=== PATIENT | male | born 1990 | race Caucasian/White ===

== ENCOUNTER 2024-06-15 17:41 | Emergency (ER) | payer OTHER, SELFPAY ==
[2024-06-15 17:51] VITALS: BP 159/93
--- NOTE | 2024-06-15 19:03 | ED.GENMED ---
History of Present Illness
General
Chief Complaint: Musculo-Skeletal Complaint
Time Seen by Provider: 06/15/24 18:13
History of Present Illness
History of Present Illness:
34-year-old male presents the emergency department for evaluation of nontraumatic left elbow swelling ongoing for the past several days. Mildly discomforting when he moves the elbow. No fevers or chills. Denies any frequent pressure applied to
the elbow. No fevers or chills
Past History
Past History
ED Past Medical History: Other (ADD); Negative Asthma, HTN, Hypercholesterolemia or NIDDM
ED Past Surgical History: None
Social History
Tobacco: Non-smoker
Alcohol: None
Personal: Single
Living: alone
Review of Systems
Review of Systems
Allergies reviewed?: Yes
All Other Systems: ROS reviewed and negative except as documented in HPI and ROS
Phy Exam
Physical Exam
Physical Exam:
GEN: Well appearing, NAD, WDWN
HEENT: Oral mucosa moist, no scleral icterus
Cardiac: Regular rate
Lung: No respiratory distress, no tachypnea
MSK: Moderately swollen left olecranon bursa, mild erythema and warmth palpated to the medial aspect of the bursa
Skin: Good color, no pallor or jaundice, no rashes
Neuro: AO x3, moves all extremities freely
Psych: Calm, cooperative
Course
Orders/Labs/Results
Orders:
Orders
06/15/24 17:55
Elbow, 3 view, Left [CR Elbow - Left Min 3 Views ] Urgent
Comment:
Reason For Exam: swelling
06/15/24 19:59
Body Fluid Cell Count Urgent
What is the Body Fluid: joint
Date Specimen was Collected: 06/15/24
Time Specimen was Collected: 19:58
Comment: with DIFF
Body Fluid Crystals Urgent
What is the Body Fluid: joint
Date Specimen was Collected: 06/15/24
Time Specimen was Collected: 19:58
Comment: L elbow
06/15/24 20:01
Fluid Culture with Gram Stain Urgent
KIP Source: Joint Fluid
Specimen Description:
Date Specimen was Collected: 06/15/24
Time Specimen was Collected: 19:58
Comment: L Elbow
Vital Signs
Initial and Last Documented VS:
Initial Vital Signs
Temp Pulse Resp BP Pulse Ox
98.5 F 101 18 159/93 98
06/15/24 17:51 06/15/24 17:51 06/15/24 17:51 06/15/24 17:51 06/15/24 17:51
Last Documented Vital Signs
Temp Pulse Resp BP Pulse Ox
98.5 F 101 18 159/93 98
06/15/24 17:51 06/15/24 17:51 06/15/24 17:51 06/15/24 17:51 06/15/24 17:51
Procedures
Incision/Drainage/Joint Aspiration
Left Elbow:
Anethesia: 1% Lidocaine with Epi
Preparation: cleaned with Hibiclens
Type of procedure: aspiration
Nature of site: other (olecranon bursa)
Description of abscess: greater than 3cm
How much fluid was obtained?: number in mls (16cc)
Fluid description: straw colored
Treatment: bandaid applied
MDM/Problems Addressed
MDM/Problems Addressed:
Due to the associated erythema adjacent to the bursa and aspiration was performed yielding 16 cc of straw-colored fluid, fluid analysis not consistent with infectious etiology. Discussed etiology with patient regarding olecranon bursitis, recommend
NSAIDs and compression
*Critical Care Note
Total Time (30-74mins, 75-104mins- exclusive of procedures): Not Applicable
ED Attending Note
-
Portions of this chart may have been created with voice recognition software.� Occasional wrong word or��sound alike� substitutions may have occurred due to the inherent limitations of voice recognition software.
Discharge Plan
Departure
Patient Disposition: Home (Routine Discharge)
Date of Disposition: 06/15/24
Time of Disposition: 19:55
Patient with high blood pressure during this ER visit?: No
Discharge Problem:
Olecranon bursitis of left elbow
Instructions: Bursitis ED
Prescriptions:
No Action
finasteride [Propecia] 1 MG tablet
1 mg PO DAILY
dextroamphetamine-amphetamine [Adderall XR] 5 MG capsule,extended release 24hr
25 mg PO DAILY
Referrals:
Fabian Cornelius PA-C [Family Provider] -
Activity Restrictions/Additional Instructions:
Ibuprofen 600mg every 6-8 hours
VIJAY wrap for compression
I will call you tonight ONLY IF your lab results show signs of infection
Interventions
Interventions:
*Risk Screen - Suicide Last Done: 06/15/24 17:51
*General Assessment Last Done: 06/15/24 17:51
*Neglect/Abuse Screening Last Done: 06/15/24 17:51
*ED COVID-19 Vaccine History Last Done: 06/15/24 17:54
*Nursing Disposition Last Done: 06/15/24 20:04
ED-Musculoskeletal Assessment Last Done: 06/15/24 18:27
Discharge Date and Time
Discharge Date/Time: 06/15/24 20:04
Print Language: PERSIAN
[2024-06-15 21:05] LABS: Body Fluid Mononuclear 56.2 %; Body Fluid Polymorphonuclear 43.8 %; Body Fluid WBC 3403 /CUMM
[2024-06-15 21:07] LABS: Body Fluid Second Tech JMK
== END 2024-06-15 20:04 | disposition home or self-care (01) ==
LOC: EMR 17:41
PROVIDERS: Physician Assistant; EMERGENCY PHYSICIAN Emergency Medicine; FAMILY PHYSICIAN Physician Assistant Medical
DX: M70.22 Olecranon bursitis, left elbow (principal); F90.9 Attention-deficit hyperactivity disorder, unspecified type
CPT/HCPCS: 99284; 20605; 73080; 87015; 87070; 87205; 89051; 89060